=== PATIENT | female | born 1975 ===

== ENCOUNTER 2018-03-12 09:46 | Emergency (ER) | payer OTHER ==
[~2018-03-12] VITALS: Ht 162.6 cm; Wt 50.0 kg
[2018-03-12 09:51] VITALS: BP 122/85
== END 2018-03-12 14:13 | disposition left against medical advice (07) ==
LOC: ER 10:41
DX: S16.1XXA Strain of muscle, fascia and tendon at neck level, initial encounter (principal); S13.4XXA Sprain of ligaments of cervical spine, initial encounter; V49.9XXA Car occupant (driver) (passenger) injured in unspecified traffic accident, initial encounter; Y93.89 Activity, other specified; Y92.89 Other specified places as the place of occurrence of the external cause; Y99.8 Other external cause status
CPT/HCPCS: 73630; 81025; 99284